=== PATIENT | female | born 1985 | race Two or more races ===

== ENCOUNTER → 2016-12-06 | Outpatient (CLI) | payer OTHER ==
--- NOTE | 2016-12-06 12:31 | REP ---
Clinical: Pain. Tendonitis. Technique: Neutral and frog lateral views of the right hip. Findings: Osseous structures, joint spaces, and surrounding soft tissues are normal. Phleboliths noted within the pelvis. No acute fracture or dislocation. No overt osteoarthritic degenerative changes. No periarticular calcifications. Impression: Normal age appropriate right hip radiographs. Signed by Nico Knight MD 12/06/2016 12:23 P
== END ==
LOC: M LRY 12:07
PROVIDERS: ATTEND Family Medicine
DX: M76.891 Other specified enthesopathies of right lower limb, excluding foot (principal)
CPT/HCPCS: 73502; G0463

== ENCOUNTER 2017-11-25 12:29 | Emergency (ER) | payer OTHER ==
[2017-11-25] MEDS: NS 1,000 ML IV (13:07)
[2017-11-25 13:17] LABS: CONTROL LINE HCG INT CTR LINE PRESENT; HCG, SERUM QUALITATIVE NEGATIVE (NEGATIVE)
[2017-11-25 13:21] LABS: ANION GAP 4 MEQ/L (8-16); BLOOD UREA NITROGEN 11 MG/DL (7-18); CALCIUM LEVEL 8.5 MG/DL (8.5-10.1); CARBON DIOXIDE LEVEL 28 MEQ/L (21-32); CHLORIDE LEVEL 108 MEQ/L (98-107); CREATININE FOR GFR 0.66 MG/DL (0.55-1.30); GLOMERULAR FILTRATION RATE > 60.0 (>60); GLUCOSE, FASTING 105 MG/DL (70-100); POTASSIUM SERUM 3.9 MEQ/L (3.5-5.1); SODIUM LEVEL 140 MEQ/L (136-145)
[2017-11-25] MEDS ORDERED: ISOVUE-370 76% 100ML VIAL (Q9967) As Ordered (13:26)
== END 2017-11-25 15:13 | disposition home or self-care (01) ==
LOC: M ED 12:29
DX: Z04.1 Encounter for examination and observation following transport accident (principal); S20.219A Contusion of unspecified front wall of thorax, initial encounter; V43.62XA Car passenger injured in collision with other type car in traffic accident, initial encounter; Y92.410 Unspecified street and highway as the place of occurrence of the external cause; M32.9 Systemic lupus erythematosus, unspecified
CPT/HCPCS: Q9967

== ENCOUNTER → 2017-11-28 | Outpatient (CLI) | payer OTHER | LOC: M LRY 14:54 | DX: M25.512 Pain in left shoulder (principal); M54.6 Pain in thoracic spine | CPT/HCPCS: 72072 ==

== ENCOUNTER → 2017-12-30 | Outpatient (CLI) | payer OTHER ==
[2017-12-30 19:12] LABS: BASO % 0.4 % (0.0-1.0); EOS # 0.2 10^3/uL (0.0-0.50); EOS % 2.1 % (0.0-3.0); HEMATOCRIT 37.8 % (36.0-47.0); HEMOGLOBIN 12.4 g/dl (12.0-16.0); IMMATURE GRANULOCYTE % 0.2 % (0-3.0); LYMPH # 2.4 10^3/uL (1.5-4.5); LYMPH % 26.6 % (24.0-44.0); MEAN CORPUSCULAR HEMOGLOBIN 31.1 pg (27.0-33.0); MEAN CORPUSCULAR HGB CONC 32.8 g/dl (32.0-36.5); MEAN CORPUSCULAR VOLUME 94.7 fl (80.0-96.0); MONO # 0.5 10^3/uL (0.0-0.8); MONO % 5.4 % (0.0-5.0); NEUTROPHILS % 65.3 % (36.0-66.0); PLATELET COUNT, AUTOMATED 236 10^3/uL (150-450); RED BLOOD COUNT 3.99 10^6/uL (4.00-5.40); RED CELL DISTRIBUTION WIDTH 12.8 % (11.5-14.5); WHITE BLOOD COUNT 9.2 10^3/uL (4.0-10.0)
[2017-12-30 19:22] LABS: ALBUMIN 4.1 GM/DL (3.2-5.2); ALBUMIN/GLOBULIN RATIO 1.21 (1.00-1.93); ALKALINE PHOSPHATASE 71 U/L (45-117); ALT/SGPT 16 U/L (12-78); ANION GAP 6 MEQ/L (8-16); AST/SGOT 9 U/L (7-37); BILIRUBIN,TOTAL 0.4 MG/DL (0.2-1.0); BLOOD UREA NITROGEN 10 MG/DL (7-18); CALCIUM LEVEL 8.5 MG/DL (8.5-10.1); CARBON DIOXIDE LEVEL 28 MEQ/L (21-32); CHLORIDE LEVEL 108 MEQ/L (98-107); CREATININE FOR GFR 0.67 MG/DL (0.55-1.30); GLOMERULAR FILTRATION RATE > 60.0 (>60); GLUCOSE, FASTING 104 MG/DL (70-100); POTASSIUM SERUM 3.8 MEQ/L (3.5-5.1); SODIUM LEVEL 142 MEQ/L (136-145); TOTAL PROTEIN 7.5 GM/DL (6.4-8.2)
== END ==
LOC: M LRY 13:56
DX: M32.9 Systemic lupus erythematosus, unspecified (principal)
CPT/HCPCS: 80053

== ENCOUNTER → 2018-06-22 | Outpatient (CLI) | payer OTHER | LOC: M LRY 13:52 | DX: M25.512 Pain in left shoulder (principal); R20.2 Paresthesia of skin | CPT/HCPCS: 84443 ==

== ENCOUNTER → 2018-07-20 | Outpatient (CLI) | payer OTHER ==
[2018-07-20 19:15] LABS: BASO % 0.8 % (0.0-1.0); EOS # 0.1 10^3/uL (0.0-0.50); HEMATOCRIT 39.2 % (36.0-47.0); HEMOGLOBIN 13.3 g/dl (12.0-15.5); IMMATURE GRANULOCYTE % 0.2 % (0-3.0); LYMPH # 1.4 10^3/uL (1.5-4.5); LYMPH % 27.9 % (24.0-44.0); MEAN CORPUSCULAR HEMOGLOBIN 30.7 pg (27.0-33.0); MEAN CORPUSCULAR HGB CONC 33.9 g/dl (32.0-36.5); MEAN CORPUSCULAR VOLUME 90.5 fl (80.0-96.0); MONO # 0.4 10^3/uL (0.0-0.8); MONO % 7.1 % (0.0-5.0); NEUTROPHILS # 3.1 10^3/uL (1.8-7.7); PLATELET COUNT, AUTOMATED 266 10^3/uL (150-450); RED BLOOD COUNT 4.33 10^6/uL (4.00-5.40); RED CELL DISTRIBUTION WIDTH 11.9 % (11.5-14.5); WHITE BLOOD COUNT 4.9 10^3/uL (4.0-10.0)
[2018-07-20 19:20] LABS: APPEARANCE, URINE CLEAR (CLEAR); BACTERIA, URINE AUTO NEGATIVE (NEGATIVE); BILIRUBIN, URINE AUTO NEGATIVE (NEGATIVE); BLOOD, URINE BLOOD NEGATIVE (NEGATIVE); COLOR, URINE YELLOW (YELLOW); GLUCOSE, URINE (UA) AUTO NEGATIVE (NEGATIVE); KETONE, URINE AUTO NEGATIVE (NEGATIVE); LEUKOCYTE ESTERASE, URINE AUTO NEGATIVE (NEGATIVE); NITRITE, URINE AUTO NEGATIVE (NEGATIVE); PROTEIN, URINE AUTO NEGATIVE (NEGATIVE); RBC, URINE AUTO 0 /HPF (0-3); SPECIFIC GRAVITY URINE AUTO 1.009 (1.002-1.035); SQUAMOUS EPITHELIAL CELL UR AU 0 /HPF (0-6); UROBILINOGEN, URINE AUTO 0.2 mg/dL (0.0-2.0); WBC, URINE AUTO 0 /HPF (0-3)
[2018-07-20 19:44] LABS: ALBUMIN 4.4 GM/DL (3.2-5.2); ALBUMIN/GLOBULIN RATIO 1.33 (1.00-1.93); ALKALINE PHOSPHATASE 50 U/L (45-117); ALT/SGPT 18 U/L (12-78); ANION GAP 10 MEQ/L (8-16); AST/SGOT 13 U/L (7-37); BILIRUBIN,TOTAL 0.4 MG/DL (0.2-1.0); BLOOD UREA NITROGEN 8 MG/DL (7-18); C REACTIVE PROTEIN QUANTITATIV < 0.30 MG/DL (0.00-0.30); CALCIUM LEVEL 9.7 MG/DL (8.5-10.1); CARBON DIOXIDE LEVEL 25 MEQ/L (21-32); CHLORIDE LEVEL 106 MEQ/L (98-107); COMPLEMENT C3 102 MG/DL (90-180); CREATININE FOR GFR 0.65 MG/DL (0.55-1.30); GLOMERULAR FILTRATION RATE > 60.0 (>60); GLUCOSE, FASTING 93 MG/DL (70-100); SODIUM LEVEL 141 MEQ/L (136-145); TOTAL PROTEIN 7.7 GM/DL (6.4-8.2)
[2018-07-20 20:03] LABS: TOTAL PROTEIN,RANDOM URINE 5.7 MG/DL (0.0-12.0)
[2018-07-20 20:12] LABS: ERYTHROCYTE SEDIMENTATION RATE 9 mm/hr (0-20)
[2018-07-25 00:06] LABS: ANA (HEP2) Positive (.); ANTI DOUBLE STRAND-DNA AB 2 IU/mL (0-9); Antimyeloperxidase(MPO) Abs <9.0 U/mL (0.0-9.0); Antiproteinase 3 (PR-3) Abs <3.5 U/mL (0.0-3.5); Cytoplasmic (C-ANCA) <1:20 titer (Neg:<1:20); Perinuclear (P-ANCA) <1:20 titer (Neg:<1:20)
== END ==
LOC: M LRY 10:31
DX: M32.9 Systemic lupus erythematosus, unspecified (principal)
CPT/HCPCS: 80053

== ENCOUNTER → 2018-07-23 | Outpatient (REF) | payer OTHER ==
[2018-07-26 14:39] LABS: HPV HYBRID CAPTURE II Negative (Negative)
== END ==
LOC: M SFHCLERA 07-24 10:08
DX: Z01.419 Encounter for gynecological examination (general) (routine) without abnormal findings (principal)

== ENCOUNTER → 2018-07-27 | Outpatient (CLI) | payer OTHER | LOC: M RAD 13:51 | DX: N93.9 Abnormal uterine and vaginal bleeding, unspecified (principal) | CPT/HCPCS: 76856 ==

== ENCOUNTER → 2018-11-12 | Outpatient (CLI) | payer OTHER ==
[2018-11-12 17:19] LABS: THYROID STIMULATING HORMONE 0.589 uIU/ML (0.358-3.740)
[2018-11-13 09:12] LABS: FREE T4 0.9 NG/DL (0.76-1.46)
== END ==
LOC: M LRY 11:51
PROVIDERS: ATTEND Advanced Practice Midwife
DX: N93.8 Other specified abnormal uterine and vaginal bleeding (principal)
CPT/HCPCS: 36415; 84439; 84443; 87624; G0123

== ENCOUNTER → 2018-11-12 | Outpatient (REF) | payer OTHER ==
[2018-11-15 14:44] LABS: HPV HYBRID CAPTURE II Negative (Negative)
== END ==
LOC: M LAB REF 19:30
PROVIDERS: ATTEND Advanced Practice Midwife
DX: N93.8 Other specified abnormal uterine and vaginal bleeding (principal); Z12.4 Encounter for screening for malignant neoplasm of cervix

== ENCOUNTER → 2018-11-19 | Outpatient (CLI) | payer OTHER ==
--- NOTE | 2018-11-19 11:20 | REP ---
Clinical: Pelvic and cranial pain . Technique: Transabdominal pelvic ultrasound followed by transvaginal examination for better evaluation of the endometrium and adnexa with color Doppler evaluation of the ovaries. Findings: Bladder is unremarkable and measures 5.5 x 7.0 x 8.9 cm . Heterogeneous anteverted uterus measures 8.7 x 4.3 x 5.4 cm . The endometrial complex measures 9.5 - 15.6 mm thickness. No discrete uterine or endometrial abnormalities are appreciated. Bilateral ovaries are normal in appearance and vascularity without evidence for torsion. Right ovary measures 3.7 x 1.9 x 2.0 cm ; R I = 0.46 . Left ovary measures 2.8 x 2.2 x 2.1 cm ; R I = 0.51 . Small amount of likely physiologic. Impression: 1. Thickened endometrial complex likely related to menstrual cycle although underlying polyp cannot definitively be excluded. 2. Normal bilateral ovaries. 3. Based on thickened endometrium, a repeat examination in 4-6 weeks may be warranted for reevaluation. Electronically Signed by Nico Knight MD 11/19/2018 11:12 A
== END ==
LOC: M RAD 10:05
PROVIDERS: ATTEND Advanced Practice Midwife
DX: R10.2 Pelvic and perineal pain (principal); R93.89 Abnormal findings on diagnostic imaging of other specified body structures

== ENCOUNTER → 2019-01-10 | Outpatient (REF) | payer OTHER | LOC: M LAB REF 14:18 | PROVIDERS: ATTEND Obstetrics & Gynecology | DX: N93.8 Other specified abnormal uterine and vaginal bleeding (principal) ==

== ENCOUNTER 2019-06-15 04:00 | Observation (INO) | payer OTHER ==
[~2019-06-15] VITALS: Ht 157.5 cm; Wt 78.5 kg
[2019-06-15] MEDS ORDERED: PLAQ200T4 PO (04:21)
[2019-06-15] MEDS ORDERED: ALLE180T33 PO (04:21)
--- NOTE | 2019-06-15 07:09 | REPVR ---
EXAM: US Abdomen Limited EXAM DATE/TIME: 06/15/2019 5:19 AM CLINICAL HISTORY: 34 years old, female; Abdominal pain; Localized; Right lower quadrant (rlq); Additional info: Eval R rectus muscle hematoma TECHNIQUE: Imaging protocol: Real-time ultrasound of the abdomen with image documentation. Examination is focused on the region of clinical interest. COMPARISON: No relevant prior studies available. FINDINGS: Sonographic evaluation of the abdominal wall of the right lower quadrant was performed in the region of the patient's pain. There is a heterogeneous intramuscular collection involving the rectus abdominis measuring 10.2 x 3.7 x 4.4 cm. This is nonspecific but consistent with the reported rectus muscle hematoma. IMPRESSION: Heterogeneous intramuscular collection involving the rectus abdominis of the right lower quadrant. This is nonspecific but consistent with the reported rectus muscle hematoma. Electronically signed by: Nico Bustillo On 06/15/2019 07:08:37 AM
[2019-06-15 08:08] LABS: HEMOGLOBIN 12.3 g/dl (12.0-15.5)
[2019-06-15 08:18] LABS: INR 1.1; PROTHROMBIN TIME 13.9 SECONDS (11.8-14.0)
[2019-06-15 08:19] LABS: PARTIAL THROMBOPLASTIN TIME 31.2 SECONDS (25.0-38.4)
[2019-06-15] MEDS ORDERED: ONDANSETRON 4MG/2ML VIAL (J2405) IV ONE (10:45)
[2019-06-15] MEDS ORDERED: MORPHINE 2 MG/ML 1ML VIAL (J2270) IV PRN (10:45)
[2019-06-15] MEDS ORDERED: NORCO, ANEXSIA 5/325MG TABLET (HYDROcodone/ACETAMINOPHEN) PO ONE (11:00)
[2019-06-15] MEDS ORDERED: FEXO60CA PO (11:25)
[2019-06-15] MEDS ORDERED: ANEXSIA, NORCO 7.5MG/325MG TABLET(HYDROCODONE/APAP) PO PRN (11:30)
[2019-06-15] MEDS ORDERED: MOM 30ML SUSPENSION UDC PO PRN (11:30)
[2019-06-15] MEDS ORDERED: HYDROXYCHLOROQUINE 200 MG TAB PO ONE (12:00)
[2019-06-15] MEDS ORDERED: MIRALAX *UNIT DOSE* 17GM PACKET PO PRN (12:00)
[2019-06-15] MEDS ORDERED: IPRATROPIUM 0.5MG/ALBUTEROL 2.5MG INH SOL UD 3ML (DUONEB)(J7620) NEB PRN (12:00)
[2019-06-15] MEDS ORDERED: MONTELUKAST 10 MG TAB PO ONE (12:00)
[2019-06-15] MEDS ORDERED: SENOKOT S TAB PO PRN (12:00)
[2019-06-15] MEDS ORDERED: FLUTICASONE PROP 0.05% NASAL SPRAY 16 GM (FLONASE) NARES ONE (12:00)
[2019-06-15 14:00] VITALS: BP 125/65
[2019-06-15] MEDS: ACETAMINOPHEN TAB 650MG DOSE (2X325MG) PO SCH ×3 (14:39→21:14)
[2019-06-15 19:08] LABS: HEMATOCRIT 36.1 % (36.0-47.0); HEMOGLOBIN 12.1 g/dl (12.0-15.5)
[2019-06-15] MEDS: FLUTICASONE PROP 0.05% NASAL SPRAY 16 GM (FLONASE) NARES SCH (21:00)
[2019-06-15 22:00] VITALS: BP 123/65
[2019-06-16 00:56] LABS: HEMOGLOBIN 11.9 g/dl (12.0-15.5)
[2019-06-16 06:00] VITALS: BP 131/71
[2019-06-16 06:15] LABS: HEMATOCRIT 36.6 % (36.0-47.0); HEMOGLOBIN 12.3 g/dl (12.0-15.5); MEAN CORPUSCULAR HEMOGLOBIN 30.4 pg (27.0-33.0); MEAN CORPUSCULAR HGB CONC 33.6 g/dl (32.0-36.5); MEAN CORPUSCULAR VOLUME 90.6 fl (80.0-96.0); PLATELET COUNT, AUTOMATED 227 10^3/uL (150-450); RED BLOOD COUNT 4.04 10^6/uL (4.00-5.40)
[2019-06-16 06:28] LABS: BLOOD UREA NITROGEN 10 MG/DL (7-18); CALCIUM LEVEL 8.7 MG/DL (8.5-10.1); CARBON DIOXIDE LEVEL 27 MEQ/L (21-32); CHLORIDE LEVEL 110 MEQ/L (98-107); GLOMERULAR FILTRATION RATE > 60.0 (>60); GLUCOSE, FASTING 99 MG/DL (70-100); POTASSIUM SERUM 4.3 MEQ/L (3.5-5.1); SODIUM LEVEL 142 MEQ/L (136-145)
[2019-06-16] MEDS ORDERED: ACET1TAB55 PO (07:23)
[2019-06-16] MEDS ORDERED: MONT10TA2 PO (07:23)
[2019-06-16] MEDS ORDERED: HYDR-4514 PO (07:23)
[2019-06-16] MEDS: ACETAMINOPHEN TAB 650MG DOSE (2X325MG) PO SCH (07:40)
[2019-06-16] MEDS: FLUTICASONE PROP 0.05% NASAL SPRAY 16 GM (FLONASE) NARES SCH (07:41)
[2019-06-16] MEDS ORDERED: MONTELUKAST 10 MG TAB PO SCH (09:00)
[2019-06-16] MEDS ORDERED: HYDROXYCHLOROQUINE 200 MG TAB PO SCH (09:00)
--- NOTE | 2019-06-16 10:51 | CR ---
DATE OF CONSULTATION: 06/15/2019 Patient is a 34-year-old of black female who 1 week ago developed some right-sided abdominal pain discomfort. She has had some problems with some sneezing, allergies and coughing and noticed that she has had some right-sided abdominal pain that has been problematic for the entire week whenever she has been doing movement, activity, even playing with her daughter she noticed that she had some significant discomfort, abdominal wall spasm. However, yesterday developed increasing pain, discomfort along this right-side of her abdomen. She does not recall any specific inciting event. However, was noticing that it was worse with coughing and sneezing. Presented to the emergency room at [place] where they did a CT scan, showed a rectus hematoma. She has been afebrile and had a normal white count at the outside hospital reportedly and with this isolated hematoma. PAST MEDICAL HISTORY: She does not have a history of anticoagulation use. Does not have a history of clotting problems. Patient has a history of wisdom teeth surgery, LEEP procedure (gynecologic surgery), history of asthma, history of lupus. MEDICATIONS INCLUDE: - Plaquenil - fexofenadine PHYSICAL EXAMINATION: Reveals a 34-year-old black female who looks stated age. HEENT is unremarkable. Neck: Supple without adenopathy. Lungs are clear to auscultation. Heart is regular. Abdomen: Soft, nondistended. She is tender along the right lower abdomen/the rectus muscle on the right-hand side and I can feel the bulging in this area. There is no specific peritoneal signs, although every time she moves she does have discomfort in this area and thus she is laying relatively flat and without moving. IMPRESSION AND PLAN: The patient has a rectus hematoma probably secondary to asthma issues/allergy issues and in general I anticipate this should continued to improve. It is hard to know if she initially had a rectus injury about a week ago and then sustained a exacerbation yesterday or whether this has just been a progressive thing over the week and was more so problematic yesterday. In any case, if it has been going on for 24 hours, just as long as she has hematocrit which is stable over the next 24 hours, discharging her home after that time is a reasonable option from a surgical standpoint. She can follow up on an as needed basis from my standpoint, but may need a hematology workup with her preload supervisor in the future. She understands and we will see how she does over the next 24 hours.
--- NOTE | 2019-06-17 10:20 | HPE ---
DATE OF ADMISSION: 06/15/2019 CHIEF COMPLAINT: Right lower quadrant abdominal pain. HISTORY OF PRESENT ILLNESS: This is a 34-year-old female who presented to the [facility], [place] with right lower quadrant pain that she first noticed last Monday described as very sharp pain, which she attributed to exercising a lot. She felt like she stretch this wrong until Monday as she went to a group session of box jumping when she jumped from the floor to as height of a chair, she felt like someone stabbed her in the right lower quadrant. She had taken some ibuprofen 800 mg every day since Monday. On , she tried to climb up into a playground because her daughter had her hair stuck. As she climbed up, she fell over and felt the sharp pain in the right lower quadrant, which has progressed on into Monday. Around 6:00 p.m. the pain got worse and felt like it was lingering. It became much more generalized in the right lower quadrant and could not get up from the bed for about 1 hour in the supine position. She has noted, the patient is worse when she is coughing or sneezing. She has had a little bit of nasal congestion recently with occasional cough without sputum production, fever or chills and this has worsened the pain in the right lower quadrant. It is worse when she tries to sit up, get in and out of bed, flex and extend the hip. Better when she is supine and not moving. She otherwise, denies any dizziness, lightheadedness. No fever or chills. No prior episode of this in the past. She has taken some Gladys [place] due to indigestion yesterday with a little bit of aspirin in it. She otherwise, also complains of some nasal congestion with rhinorrhea. No ear pain, sore throat, fever or chills. Has occasional cough without sputum production. She has not had any montelukast for which she takes for her allergies and had run out of this. She follows with an software educator, Dr. Cárdenas in [facility]. The increase in pain prompted the patient to present to the emergency room of [place] where she was found to have a right rectus sheath hematoma and was subsequently transferred to [facility] to be evaluated by general surgery. Dr. Paulo Vazquez had seen her and felt that the patient is stable and does not need any acute surgical intervention and will do well with pain medications and activity as tolerated with hemoglobin and hematocrit monitoring overnight. Patient did receive morphine at [place] emergency room, which did not help her. She said Dilaudid worked better and when she was transferred to [facility], she was given one dose of Lostant 7.5/325 mg, which apparently is not working. PAST MEDICAL HISTORY: Asthma. Lupus diagnosed in 2014. PAST SURGICAL HISTORY: Loop electrosurgical excision (LEEP) procedure times four. Carpal tunnel repair October 2018. ALLERGIES: No known drug or food allergies. HOME MEDICATIONS: - Flonase one spray each nostril nasally daily - Plaquenil 200 daily - Nani daily - montelukast daily - ProAir HFA daily FAMILY HISTORY: Father in his 40s with suicide. Mother alive in her 50s with lupus. Paternal grandfather unknown medical cause of . Paternal grandmother had cerebrovascular accident (CVA) and . Maternal grandmother is alive with hypertension and anemia. Two sisters are alive and well. She has two daughters and a at home. SOCIAL HISTORY: Lives with her and two daughters at home. 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 She drinks alcohol one to two drinks per weekend, usually wine or beer about four drinks per month. She has never smoked cigarettes. Denies any recreational drug use. HEALTHCARE PROXY: Her . REVIEW OF SYSTEMS: As per history of present illness (HPI). 12-point system otherwise, negative. PHYSICAL EXAMINATION: Temperature 98.3, pulse 70, respiratory rate 16, blood pressure 130/82, 100% on room air. Generally, patient is awake, alert, oriented times three. She has some nasal congestion and muffled voice. Provides history. No use of respiratory accessory muscles. No jugular venous distention (JVD), cervical lymphadenopathy or thyromegaly. She has no maxillary sinus tenderness. There is no icterus or jaundice. Dry mucous membranes with chapped lips. No missing teeth. Lungs are clear to auscultation. No wheezing, rales or rhonchi. Air entry is equal bilaterally. No adventitious breath sounds. Heart: S1, S2, sinus rhythm. Nondisplaced point of maximal impulse. No murmurs, rubs or gallops noted. No carotid bruits. No abdominal bruits noted. 2+ pedal pulses. Dorsalis pedis, posterior tibialis is noted. Capillary refill is normal. Abdomen is soft, tender in the right lower quadrant. There is no ecchymosis, Abbott Thompson sign negative. Positive bowel sounds times four quadrants. There is no rebound. There is voluntary guarding of the right lower quadrant. No hepatosplenomegaly. Patient has no ecchymotic areas in the abdomen. Extremities: No cyanosis, clubbing or any pitting edema. LABORATORY DATA: Hemoglobin 12, hematocrit 37, INR 1.1. IMAGING STUDY: Ultrasound of the abdomen shows right lower quadrant heterogeneous intramuscular collection involving rectus abdominis meauring 10 x 3.7 x 4.4 cm. Nonspecific but consistent with rectus muscle hematoma. ASSESSMENT/PLAN: 34-year-old female with history of lupus, asthma, LEEP procedure and carpal tunnel surgery was doing well until last Monday when she developed a right lower quadrant pain after strenuous exercise. Was found to have a 10 x 3.7 x 4.4 rectus muscle hematoma admitted for observation. CURRENT ISSUES: 1. Rectus muscle hematoma measuring 10.2 x 3.7 x 4.4 cm. Ultrasound does not show any abscess formation. Patient has no fever or chills. Per general surgery, Dr. Paulo Vazquez who has been consulted, there is no need for surgical intervention. Patient can have activity as tolerated, pain control with Lostant, one tablet every 6 hours as needed. Heating pad and possible discharge in the morning. 2. Allergic rhinitis: Patient will be resumed on her home dose of Nani and montelukast. 3. History of asthma: Current with no active wheezing at the bedside. May continue as needed inhalers. 4. History of lupus: No acute symptoms at this time. Continue on Plaquenil 200 daily. Patient has had an annual eye examination. 5. Diet: Regular diet. 6. Activity as tolerated. DISPOSITION: Discharged in the morning if pain is controlled. Activity level: Avoid strenuous exercise as an outpatient. [facility]
--- NOTE | 2019-06-17 20:43 | DSES ---
DATE OF ADMISSION: 06/15/2019 DATE OF DISCHARGE: 06/16/2019 CONSULTATION: General surgery, Paulo Vazquez MD DISCHARGE DIAGNOSES: 1. Rectus sheath hematoma secondary to strenuous exercise. 2. Acute blood loss anemia secondary to rectus sheath hematoma. 3. History of lupus. 4. Allergic rhinitis. 5. History of asthma. DISCHARGE MEDICATIONS: - acetaminophen 650 by mouth four times a day - hydrocodone/acetaminophen one tablet every 6 hours as needed, maximum daily dose of four, 5 day supply, #20 tablets dispensed - montelukast 10 mg daily - fexofenadine 60 mg twice a day - Plaquenil 200 mg nightly DISCHARGE INSTRUCTIONS: Patient is to followup with primary care physician within 5 days of hospital discharge. Avoid strenuous exercise for 2 weeks and more than 5 pound weightbearing. Avoid nonsteroidal anti-inflammatory drugs (NSAIDs) and aspirin. HOSPITAL COURSE: 34-year-old female presented to the emergency room with complaints of right lower quadrant pain which started on Monday when she was beat boxing. Patient heard a popping sound and developed right lower quadrant abdominal pain. Patient developed worsening pain after taking aspirin at home. She was taking ibuprofen 2-3 tablets daily and presented to the emergency room at [facility] and was found to have a rectus sheath hematoma. She was subsequently transferred to [facility] Emergency Room for surgical services. Dr. Paulo Vazquez evaluated her and felt that this was nonsurgical. Recommendations were to check the hemoglobin and hematocrit every 6 hours, transfuse as needed, and pain control. Patient did receive morphine with no relief. She was given Dilaudid with better relief. She was kept on hydrocodone/acetaminophen one tablet as needed as well as Tylenol four times a day. She was able to ambulate well, tolerated her diet, and was stable for hospital discharge this morning. Hemoglobin and hematocrit remained stable with a hemoglobin of 12, did not require any blood transfusion. LABORATORY DATA ON DISCHARGE: White count 5, hemoglobin 12, hematocrit 36, platelet count 227, sodium 142, potassium 4.3, chloride 110, bicarbonate 27, BUN 10, creatinine 0.7, glucose of 99. IMAGING STUDIES: Ultrasound of the abdomen shows a 10 x 3.7 x 4.4 rectus muscle hematoma. TIME SPENT ON DISCHARGE: 32 minutes MTDD
== END 2019-06-16 09:44 | disposition home or self-care (01) ==
LOC: M ED 04:00 → M ED INP 04:01 → M MSPAV 14:08
PROVIDERS: ADMIT General Practice; ATTEND General Practice
DX: M79.81 Nontraumatic hematoma of soft tissue (principal); D62 Acute posthemorrhagic anemia; M32.9 Systemic lupus erythematosus, unspecified; J30.1 Allergic rhinitis due to pollen; Z87.09 Personal history of other diseases of the respiratory system

== ENCOUNTER → 2019-08-29 | Outpatient (CLI) | payer OTHER ==
[~2019-08-29] MED LIST: ACET1TAB55 PO; ALLE180T33 PO; FEXO60CA PO; HYDR-4514 PO; MONT10TA2 PO; PLAQ200T4 PO
--- NOTE | 2019-08-29 21:47 | REP ---
Clinical: Right ankle pain . Technique: AP, lateral, bilateral oblique views. Findings: No acute fracture or dislocation. Skeletal structures and joint spaces are intact and normal. Ankle mortise appears stable. No subcutaneous emphysema or radiodense foreign body. Impression: Normal right ankle radiograph series. Electronically Signed by Nico Knight MD 08/29/2019 09:39 P
== END ==
LOC: M LRY 12:20
PROVIDERS: ATTEND Family Medicine
DX: M25.571 Pain in right ankle and joints of right foot (principal)
CPT/HCPCS: 73610; 90471; 90682; G0463

== ENCOUNTER → 2019-10-21 | Outpatient (CLI) | payer OTHER ==
--- NOTE | 2019-10-21 15:49 | REP ---
MRI right foot without contrast: History: Pain in the right heel. No known injury. Question stress fracture. Negative x-rays. Comparison ankle radiographs August 29, 2019. Technique: Axial, coronal and sagittal imaging planes were utilized. T1 and T2-weighted scans were obtained with and without fat saturation. MRI findings: Cortical and medullary bone signal intensity is normal in tarsal bones and the distal tibia and fibula. There is no evidence of tarsal or metatarsal stress fracture. No juxtaarticular cyst or mass is seen. Plantar fascia is smooth. There is a linear zone of edema anterior to and posterior to the distal Achilles tendon insertion. A small quantity of fluid is seen in the pre Achilles tendon soft tissues. These changes may reflect mild Achilles tendonitis. The Achilles tendon is normal in coarse, caliber and internal signal intensity on T1 and T2-weighted scans. No other evidence of tendinopathy at or about the ankle. There is no evidence to suggest tarsal coalition. Study is otherwise unremarkable. Impression: Edema anterior and posterior to the distal Achilles tendon question distal Achilles tendonitis. There is no evidence to suggest tarsal or metatarsal stress fracture or other bony lesion. Electronically Signed by Rodger Harvey MD 10/21/2019 06:18 P
== END ==
LOC: M RAD 12:28
PROVIDERS: ATTEND Family Medicine
DX: M79.671 Pain in right foot (principal); R22.41 Localized swelling, mass and lump, right lower limb

== ENCOUNTER → 2020-09-28 | Outpatient (REF) | payer OTHER ==
[~2020-09-28] MED LIST changes: -MONT10TA2 PO; +MONT5TAB2 PO
== END ==
LOC: M SFHCLERA 14:21
PROVIDERS: ATTEND Nurse Practitioner Family
DX: R30.0 Dysuria (principal)

== ENCOUNTER → 2020-10-09 | Outpatient (REF) | payer OTHER | LOC: M SFHCLERA 11:56 | PROVIDERS: ATTEND Nurse Practitioner Family | DX: R35.0 Frequency of micturition (principal) | CPT/HCPCS: 81002; 81025; 87086; 87490; 87590; 87661; G0463 ==

== ENCOUNTER → 2020-10-13 | Outpatient (CLI) | payer OTHER ==
--- NOTE | 2020-10-13 12:51 | REP ---
INDICATION: DYSURIA COMPARISON: None TECHNIQUE: Axial noncontrast images from the lung bases to the pubic symphysis with coronal and sagittal reformations. This CT examination was performed using the following dose reduction techniques: Automated exposure control, adjustment of mA and/or kv according to the patient's size, and use of iterative reconstruction technique. FINDINGS: Liver, spleen, pancreas, gallbladder, bilateral adrenal glands and kidneys are normal for noncontrast evaluation. Specifically, the kidneys are normal in appearance and without hydroureteronephrosis or nephroureterolithiasis. The enteric system is without obstruction or acute inflammatory process. Normal terminal ileum and appendix are identified in the right lower quadrant. Pelvis demonstrates normal bladder and age-appropriate uterus/adnexa. Round foreign body at the cervix possibly representing contraceptive device. Few calcifications within the pelvis likely represent phleboliths. No ascites. No free air. No adenopathy. Abdominal aorta without aneurysm. IMPRESSION: 1. No acute abdominopelvic pathology appreciated. <Electronically signed by Nico Knight > 10/13/20 [id number]
[2020-10-13 13:06] LABS: BLOOD UREA NITROGEN 11 MG/DL (7-18); CARBON DIOXIDE LEVEL 32 MEQ/L (21-32); CHLORIDE LEVEL 107 MEQ/L (98-107); CREATININE FOR GFR 0.81 MG/DL (0.55-1.30); GLOMERULAR FILTRATION RATE > 60.0 (>60); GLUCOSE, FASTING 89 MG/DL (70-100); POTASSIUM SERUM 3.8 MEQ/L (3.5-5.1); SODIUM LEVEL 140 MEQ/L (136-145)
[2020-10-13 16:34] LABS: APPEARANCE, URINE CLEAR (CLEAR); BACTERIA, URINE AUTO NEGATIVE (NEGATIVE); BILIRUBIN, URINE AUTO NEGATIVE (NEGATIVE); BLOOD, URINE BLOOD NEGATIVE (NEGATIVE); COLOR, URINE COLORLESS (YELLOW); GLUCOSE, URINE (UA) AUTO NEGATIVE (NEGATIVE); KETONE, URINE AUTO NEGATIVE (NEGATIVE); LEUKOCYTE ESTERASE, URINE AUTO NEGATIVE (NEGATIVE); NITRITE, URINE AUTO NEGATIVE (NEGATIVE); PROTEIN, URINE AUTO NEGATIVE (NEGATIVE); RBC, URINE AUTO 0 /HPF (0-3); SPECIFIC GRAVITY URINE AUTO 1.001 (1.002-1.035); SQUAMOUS EPITHELIAL CELL UR AU 0 /HPF (0-6); UROBILINOGEN, URINE AUTO 0.2 mg/dL (0.0-2.0); WBC, URINE AUTO 1 /HPF (0-3)
== END ==
LOC: M LAB 12:03
PROVIDERS: ATTEND Family Medicine
DX: R30.0 Dysuria (principal)
CPT/HCPCS: 36415; 74176; 80048; 81001; 81002; 81025; G0463

== ENCOUNTER → 2020-12-16 | Outpatient (CLI) | payer OTHER ==
[~2020-12-16] MED LIST changes: +MONT10TA10 PO; -MONT5TAB2 PO
[2020-12-16 14:24] LABS: BASO # 0.1 10^3/uL (0.0-0.2); BASO % 0.7 % (0.0-1.0); EOS # 0.1 10^3/uL (0.0-0.5); HEMATOCRIT 43.1 % (36.0-47.0); LYMPH # 2.4 10^3/uL (1.5-5.0); LYMPH % 34.7 % (24.0-44.0); MEAN CORPUSCULAR HGB CONC 32.5 g/dl (32.0-36.5); MEAN CORPUSCULAR VOLUME 95.6 fl (80.0-96.0); MONO # 0.5 10^3/uL (0.0-0.8); MONO % 6.9 % (2.0-8.0); NEUTROPHILS # 3.8 10^3/uL (1.5-8.5); NEUTROPHILS % 55.4 % (36.0-66.0); PLATELET COUNT, AUTOMATED 266 10^3/uL (150-450); RED BLOOD COUNT 4.51 10^6/uL (4.00-5.40); WHITE BLOOD COUNT 6.9 10^3/uL (4.0-10.0)
[2020-12-16 14:35] LABS: ALBUMIN 4.5 GM/DL (3.2-5.2); ALT/SGPT 29 U/L (12-78); BILIRUBIN,TOTAL 0.4 MG/DL (0.2-1.0); BLOOD UREA NITROGEN 18 MG/DL (7-18); CALCIUM LEVEL 9.4 MG/DL (8.5-10.1); CARBON DIOXIDE LEVEL 30 MEQ/L (21-32); CHLORIDE LEVEL 105 MEQ/L (98-107); COMPLEMENT C3 87 MG/DL (90-180); COMPLEMENT C4 17 MG/DL (10-40); CREATININE FOR GFR 0.85 MG/DL (0.55-1.30); GLOMERULAR FILTRATION RATE > 60.0 (>60); GLUCOSE, FASTING 100 MG/DL (70-100); POTASSIUM SERUM 4.4 MEQ/L (3.5-5.1); SODIUM LEVEL 139 MEQ/L (136-145); TOTAL PROTEIN 7.8 GM/DL (6.4-8.2)
[2020-12-16 14:37] LABS: APPEARANCE, URINE CLEAR (CLEAR); BACTERIA, URINE AUTO 1+ (NEGATIVE); BILIRUBIN, URINE AUTO NEGATIVE (NEGATIVE); BLOOD, URINE BLOOD NEGATIVE (NEGATIVE); COLOR, URINE YELLOW (YELLOW); GLUCOSE, URINE (UA) AUTO NEGATIVE (NEGATIVE); KETONE, URINE AUTO NEGATIVE (NEGATIVE); LEUKOCYTE ESTERASE, URINE AUTO TRACE (NEGATIVE); MUCUS, URINE SMALL (NEGATIVE); NITRITE, URINE AUTO NEGATIVE (NEGATIVE); PROTEIN, URINE AUTO NEGATIVE (NEGATIVE); RBC, URINE AUTO 2 /HPF (0-3); SPECIFIC GRAVITY URINE AUTO 1.016 (1.002-1.035); SQUAMOUS EPITHELIAL CELL UR AU 2 /HPF (0-6); UROBILINOGEN, URINE AUTO 0.2 mg/dL (0.0-2.0); WBC, URINE AUTO 8 /HPF (0-3)
[2020-12-16 14:57] LABS: ERYTHROCYTE SEDIMENTATION RATE 4 mm/hr (0-20)
[2020-12-18 12:08] LABS: ANTI DS-DNA AB Negative (Negative); BETA-2 GLYCOPROTEIN I ABY IGA <9 (0-25); BETA-2 GLYCOPROTEIN I ABY IGG <9 (0-20); BETA-2 GLYCOPROTEIN I ABY IGM <9 (0-32); CARDIOLIPIN IGA ANTIBODY <9 APL U/mL (0-11); CARDIOLIPIN IGG ANTIBODY <9 GPL U/mL (0-14); CARDIOLIPIN IGM ANTIBODY 19 MPL U/mL (0-12)
== END ==
LOC: M LAB 12:55
PROVIDERS: ATTEND Nurse Practitioner Family
DX: M32.9 Systemic lupus erythematosus, unspecified (principal); M25.512 Pain in left shoulder

== ENCOUNTER → 2020-12-16 | Outpatient (CLI) | payer OTHER ==
--- NOTE | 2020-12-16 16:44 | REP ---
INDICATION: PAIN IN LEFT SHOULDER/ PT IS GETTING LABS FIRST COMPARISON: 06/22/2018. TECHNIQUE: Three views left shoulder. FINDINGS: There is no evidence of acute fracture, dislocation, or intrinsic bone disease.Joint spaces are unremarkable. IMPRESSION: Negative left shoulder series. <Electronically signed by Miguel Abbott > 12/16/20 [id number]
== END ==
LOC: M RAD 12:57
PROVIDERS: ATTEND Family Medicine
DX: M25.512 Pain in left shoulder (principal)

== ENCOUNTER → 2021-03-12 | Outpatient (CLI) | payer OTHER ==
--- NOTE | 2021-03-12 09:51 | REP ---
INDICATION: Assess POSSIBLE ROTATOR CUFF INJURY. COMPARISON: Radiographs 12/16/2020. TECHNIQUE: Coronal oblique T1, T2 fat sat, sagittal oblique T2 fat sat, axial T2 fat sat, gradient echo. FINDINGS: Rotator cuff: There is mild supraspinatus tendinopathy/tendinitis. There is no evidence of a rotator cuff tendon tear. Acromioclavicular joint: There are mild hypertrophic changes at the acromioclavicular joint. Acromion: Type 2 Biceps Tendon: In bicipital groove, with mild surrounding fluid. Hill Sach's deformity: None. Deltoid muscle: No abnormal signal. Biceps labral complex: Intact. Labrum: No tear. Cartilage: No defects. Bone marrow: There is mild subcortical marrow edema in the superolateral humeral head. Joint fluid: No effusion. IMPRESSION: There is mild supraspinatus tendinopathy/tendinitis. Mild hypertrophic degenerative changes acromioclavicular joint with a type 2 acromion. Mild fluid surrounds the biceps tendon within the bicipital groove. Mild subcortical marrow edema in the superolateral humeral head. No evidence of rotator cuff tear or labral tear. <Electronically signed by Miguel Abbott > 03/12/21 [id number]
== END ==
LOC: M PLARAD 08:42
PROVIDERS: ATTEND Orthopaedic Surgery Sports Medicine
DX: M75.42 Impingement syndrome of left shoulder (principal)

== ENCOUNTER → 2021-03-23 | Outpatient (REF) | payer OTHER | LOC: M SFHCWAGY 13:30 | PROVIDERS: ATTEND Nurse Practitioner Women's Health | DX: Z12.4 Encounter for screening for malignant neoplasm of cervix (principal); Z87.42 Personal history of other diseases of the female genital tract | CPT/HCPCS: 87624; G0123 ==

== ENCOUNTER → 2021-05-10 | Outpatient (CLI) | payer OTHER ==
[~2021-05-10] MED LIST changes: +GASTROGRAFIN SOLUTION 30ML (Q9963) As Ordered ONE; +ISOVUE-370 76% 100ML VIAL As Ordered ONE
[2021-05-10 16:19] LABS: BASO % 0.5 % (0.0-1.0); HEMATOCRIT 41.9 % (36.0-47.0); LYMPH # 0.7 10^3/uL (1.5-5.0); LYMPH % 17.6 % (24.0-44.0); MEAN CORPUSCULAR HEMOGLOBIN 31.2 pg (27.0-33.0); MEAN CORPUSCULAR HGB CONC 33.4 g/dl (32.0-36.5); MEAN CORPUSCULAR VOLUME 93.3 fl (80.0-96.0); MONO # 0.4 10^3/uL (0.0-0.8); MONO % 9.4 % (2.0-8.0); NEUTROPHILS # 2.7 10^3/uL (1.5-8.5); NEUTROPHILS % 71.2 % (36.0-66.0); PLATELET COUNT, AUTOMATED 206 10^3/uL (150-450); RED BLOOD COUNT 4.49 10^6/uL (4.00-5.40); WHITE BLOOD COUNT 3.8 10^3/uL (4.0-10.0)
[2021-05-10 16:45] LABS: ALT/SGPT 25 U/L (12-78); BILIRUBIN,TOTAL 0.4 MG/DL (0.2-1.0); BLOOD UREA NITROGEN 11 MG/DL (7-18); CALCIUM LEVEL 8.7 MG/DL (8.5-10.1); CARBON DIOXIDE LEVEL 27 MEQ/L (21-32); CHLORIDE LEVEL 108 MEQ/L (98-107); CREATININE FOR GFR 0.77 MG/DL (0.55-1.30); GLOMERULAR FILTRATION RATE > 60.0 (>60); GLUCOSE, FASTING 99 MG/DL (70-100); POTASSIUM SERUM 3.6 MEQ/L (3.5-5.1); SODIUM LEVEL 141 MEQ/L (136-145); TOTAL PROTEIN 7.7 GM/DL (6.4-8.2)
--- NOTE | 2021-05-10 16:46 | REP ---
INDICATION: RLQ PAIN. COMPARISON: Comparison CT study abdomen and pelvis October 13, 2020.. TECHNIQUE: Helical scanning is acquired following the intravenous injection of 100 mL of Isovue 370. 3 mm axial images re-formatted. Oral contrast was also administered. FINDINGS: Preliminary digital line production cook radiograph is unremarkable. Normal bowel gas pattern. The lung bases are clear on axial CT images. The liver and the spleen are normal in size homogeneous in texture. The stomach is distended with orally ingested contrast and some other ingested material. There is bowel lumen labeling through much of the ileum. No evidence of large or small bowel obstruction. No pancreatic or gallbladder abnormality is observed. No retroperitoneal mass or adenopathy is seen. The kidneys enhance symmetrically and are morphologically intact. No adrenal lesion is seen. No abdominal wall defect is noted. A normal appendix is seen in the right lower quadrant medially. Urinary bladder is intact. A diaphragm is seen in the vaginal fornix. No uterine or adnexal abnormality is observed. No bony destructive lesion is seen. IMPRESSION: No acute abdominal or pelvic abnormality. Normal appendix seen. Otherwise negative. <Electronically signed by Stephon Harvey > 05/10/21 [id number]
== END ==
LOC: M RAD 14:36
PROVIDERS: ATTEND Nurse Practitioner Family
DX: R10.813 Right lower quadrant abdominal tenderness (principal)

== ENCOUNTER → 2021-05-10 | Outpatient (REF) | payer OTHER ==
[~2021-05-10] MED LIST changes: -GASTROGRAFIN SOLUTION 30ML (Q9963) As Ordered ONE; -ISOVUE-370 76% 100ML VIAL As Ordered ONE
== END ==
LOC: M SFHCLERA 13:29
PROVIDERS: ATTEND Nurse Practitioner Family
DX: R10.31 Right lower quadrant pain (principal)

== ENCOUNTER → 2021-06-30 | Outpatient (CLI) | payer OTHER ==
[2021-06-30 12:22] LABS: BASO % 0.5 % (0.0-1.0); EOS # 0.1 10^3/uL (0.0-0.5); EOS % 0.9 % (0.0-3.0); HEMOGLOBIN 14.1 g/dl (12.0-15.5); LYMPH # 1.9 10^3/uL (1.5-5.0); LYMPH % 23.9 % (24.0-44.0); MEAN CORPUSCULAR HEMOGLOBIN 31.1 pg (27.0-33.0); MEAN CORPUSCULAR HGB CONC 32.8 g/dl (32.0-36.5); MEAN CORPUSCULAR VOLUME 94.7 fl (80.0-96.0); MONO # 0.6 10^3/uL (0.0-0.8); MONO % 7.2 % (2.0-8.0); NEUTROPHILS # 5.3 10^3/uL (1.5-8.5); NEUTROPHILS % 67.2 % (36.0-66.0); PLATELET COUNT, AUTOMATED 230 10^3/uL (150-450); RED BLOOD COUNT 4.54 10^6/uL (4.00-5.40); WHITE BLOOD COUNT 7.8 10^3/uL (4.0-10.0)
[2021-06-30 12:44] LABS: ERYTHROCYTE SEDIMENTATION RATE 3 mm/hr (0-20)
[2021-06-30 12:58] LABS: ALBUMIN 4.1 GM/DL (3.2-5.2); ALT/SGPT 25 U/L (12-78); BILIRUBIN,TOTAL 0.4 MG/DL (0.2-1.0); BLOOD UREA NITROGEN 12 MG/DL (7-18); CALCIUM LEVEL 8.9 MG/DL (8.5-10.1); CARBON DIOXIDE LEVEL 26 MEQ/L (21-32); CHLORIDE LEVEL 106 MEQ/L (98-107); GLOMERULAR FILTRATION RATE > 60.0 (>60); GLUCOSE, FASTING 99 MG/DL (70-100); POTASSIUM SERUM 4.4 MEQ/L (3.5-5.1); SODIUM LEVEL 139 MEQ/L (136-145); TOTAL PROTEIN 7.8 GM/DL (6.4-8.2)
[2021-07-01 17:07] LABS: CARDIOLIPIN IGA ANTIBODY <9 APL U/mL (0-11); CARDIOLIPIN IGG ANTIBODY <9 GPL U/mL (0-14); CARDIOLIPIN IGM ANTIBODY 17 MPL U/mL (0-12)
== END ==
LOC: M LAB 11:25
PROVIDERS: ATTEND Nurse Practitioner Family
DX: M32.9 Systemic lupus erythematosus, unspecified (principal)

== ENCOUNTER → 2021-07-24 | Outpatient (CLI) | payer OTHER ==
[~2021-07-24] MED LIST changes: +ACET32TAB PO; +FEXO180T58 PO; +IBUP200C27 PO
== END ==
LOC: M LABSMTC 10:47
PROVIDERS: ATTEND Anesthesiology
DX: Z01.818 Encounter for other preprocedural examination (principal); Z11.52 Encounter for screening for COVID-19

== ENCOUNTER 2021-07-29 08:14 | Day surgery (SDC) | payer OTHER ==
[~2021-07-29] VITALS: Ht 157.5 cm; Wt 78.5 kg
[~2021-07-29 08:14] MED LIST changes: +NS 1,000 ML IV ONE
[2021-07-29] MEDS ORDERED: propofoL 200 MG/20 ML VIAL As Ordered ONE (09:55)
[2021-07-29] MEDS ORDERED: LIDOCAINE 2% 100MG/5ML SDV (FOR ANES.) As Ordered ONE (09:55)
--- NOTE | 2021-07-29 10:53 | ROOR ---
Patient Name: Glenny Minor Procedure Date: 07/29/2021 10:24 AM Date of : 1985 Age: 36 Room: [facility] Gender: Female Note Status: Finalized Procedure: Colonoscopy Indications: Hematochezia Providers: Franky Ashby MD Referring MD: Sruthi Bright Requesting Provider: Medicines: Monitored Anesthesia Care Complications: No immediate complications. Procedure: Pre-Anesthesia Assessment: - Prior to the procedure, a History and Physical was performed, and patient medications and allergies were reviewed. The patient is competent. The risks and benefits of the procedure and the sedation options and risks were discussed with the patient. All questions were answered and informed consent was obtained. Patient identification and proposed procedure were verified by the physician, the nurse and the anesthesiologist in the procedure room. Mental Status Examination: normal. Airway Examination: normal oropharyngeal airway and neck mobility. Respiratory Examination: clear to auscultation. CV Examination: normal. Prophylactic Antibiotics: The patient does not require prophylactic antibiotics. Prior Anticoagulants: The patient has taken no previous anticoagulant or antiplatelet agents. ASA Grade Assessment: II - A patient with mild systemic disease. After reviewing the risks and benefits, the patient was deemed in satisfactory condition to undergo the procedure. The anesthesia plan was to use monitored anesthesia care (MAC). Immediately prior to administration of medications, the patient was re-assessed for adequacy to receive sedatives. The heart rate, respiratory rate, oxygen saturations, blood pressure, adequacy of pulmonary ventilation, and response to care were monitored throughout the procedure. The physical status of the patient was re-assessed after the procedure. The Colonoscope was introduced through the anus and advanced to the terminal ileum, with identification of the appendiceal orifice and IC valve. The colonoscopy was performed without difficulty. The patient tolerated the procedure well. The quality of the bowel preparation was good. The terminal ileum, ileocecal valve, appendiceal orifice, and rectum were photographed. Scope insertion time was 2 minutes. Scope withdrawal time was 9 minutes. The total duration of the procedure was 12 minutes. Findings: The perianal and digital rectal examinations were normal. The terminal ileum appeared normal. A 5 mm polyp was found in the ascending colon. The polyp was sessile. The polyp was removed with a jumbo cold forceps. Resection and retrieval were complete. Verification of patient identification for the specimen was done by the physician and nurse using the patient's name, date and medical record number. Estimated blood loss was minimal. A few small-mouthed diverticula were found in the sigmoid colon. Non-bleeding external and internal hemorrhoids were found during retroflexion. The hemorrhoids were medium-sized. Impression: - The examined portion of the ileum was normal. - One 5 mm polyp in the ascending colon, removed with a jumbo cold forceps. Resected and retrieved. - Diverticulosis in the sigmoid colon. - Non-bleeding external and internal hemorrhoids. Recommendation: - Patient has a contact number available for emergencies. The signs and symptoms of potential delayed complications were discussed with the patient. Return to normal activities tomorrow. Written discharge instructions were provided to the patient. - High fiber diet. - Continue present medications. - Await pathology results. - Repeat colonoscopy in 5-10 years for surveillance based on pathology results. - Telephone GI clinic for pathology results in 2 weeks. - Return to GI clinic if persistent symptoms or new symptoms. - Return to primary care physician. Procedure Code(s): --- Professional --- 70699, Colonoscopy, flexible; with biopsy, single or multiple Diagnosis Code(s): --- Professional --- K64.8, Other hemorrhoids K63.5, Polyp of colon K92.1, Melena (includes Hematochezia) K57.30, Diverticulosis of large intestine without perforation or abscess without bleeding CPT copyright 2019 [employer]. All rights reserved. The codes documented in this report are preliminary and upon language path review may be revised to meet current compliance requirements. Franky Ashby MD Franky Ashby MD 07/29/2021 10:53:35 AM Electronically signed by Franky Ashby MD Number of Addenda: 0 Note Initiated On: 07/29/2021 10:24 AM Estimated Blood Loss: Estimated blood loss was minimal.
[2021-07-29 11:05] VITALS: BP 115/61
== END 2021-07-29 11:16 | disposition home or self-care (01) ==
LOC: M OPP 08:14
PROVIDERS: ATTEND Internal Medicine Gastroenterology
DX: D12.3 Benign neoplasm of transverse colon (principal); K57.30 Diverticulosis of large intestine without perforation or abscess without bleeding; K64.8 Other hemorrhoids; K92.1 Melena; M32.9 Systemic lupus erythematosus, unspecified; Z79.899 Other long term (current) drug therapy

== ENCOUNTER → 2021-07-30 | Outpatient (CLI) | payer OTHER ==
[~2021-07-30] MED LIST changes: -NS 1,000 ML IV ONE
[2021-07-30 12:06] LABS: DRVV SCREEN 37.2 SEC
[2021-08-01 02:07] LABS: BETA-2 GLYCOPROTEIN I ABY IGA <9 (0-25); BETA-2 GLYCOPROTEIN I ABY IGG <9 (0-20); BETA-2 GLYCOPROTEIN I ABY IGM <9 (0-32)
== END ==
LOC: M LAB 10:08
PROVIDERS: ATTEND Nurse Practitioner Family
DX: M32.9 Systemic lupus erythematosus, unspecified (principal)